=== PATIENT | female | born 1995 | race Caucasian/White ===

== ENCOUNTER 2018-05-05 11:56 | Inpatient (IN) | payer OTHER ==
[2018-05-05] MEDS ORDERED: CARBOPROST 250 MCG INJ IM (12:30)
[2018-05-05] MEDS ORDERED: LIDOCAINE 1% (MPF) 30 ML INJ INJ (12:30)
[2018-05-05] MEDS ORDERED: MISOPROSTOL 200 MCG TAB PR (12:30)
[2018-05-05] MEDS ORDERED: OXYTOCIN 30 UNITS/LR 500 ML IV (12:30)
[2018-05-05] MEDS ORDERED: METHYLERGONOVINE 0.2 MG INJ IM (12:30)
[2018-05-05] MEDS ORDERED: OXYCODONE/ACETAMINOPHEN (5/325) TAB PO (12:30)
[2018-05-05] MEDS ORDERED: IBUPROFEN 600 MG TAB PO (12:30)
[2018-05-05 14:34] LABS: ADD MAN DIFF? NO
[2018-05-05 14:37] LABS: BASOPHILS % 0.4 % (0.0-2.0); EOSINOPHILS # 0.1 10^3/ul (0.0-0.5); HEMATOCRIT 37.6 % (37.0-47.0); HEMOGLOBIN 12.3 g/dl (12.0-16.0); LYMPHOCYTES # 1.2 10^3/ul (0.8-2.9); MEAN CORPUSCULAR HEMOGLOBIN 28.7 pg (29.0-33.0); MEAN CORPUSCULAR HGB CONC 32.7 g/dl (32.0-37.0); MEAN CORPUSCULAR VOLUME 87.9 fl (82.0-101.0); MEAN PLATELET VOLUME 11.4 fl (7.4-10.4); MONOCYTE # 0.5 10^3/ul (0.3-0.9); MONOCYTES % 9.8 % (0.0-11.0); NEUTROPHIL # 3.1 10^3/ul (1.6-7.5); NEUTROPHILS % 63.2 % (39.0-77.0); PLATELET COUNT 179 10^3/UL (140-415); RED BLOOD COUNT 4.28 10^6/ul (4.20-5.40); RED CELL DISTRIBUTION WIDTH 13.3 % (11.5-14.5)
[2018-05-05 14:37] LABS: WHITE BLOOD COUNT 4.9 10^3/ul (4.8-10.8)
[2018-05-05] MEDS: LACTATED RINGER'S 1,000 ML IV* ×3 (14:51→22:49)
[2018-05-05 14:58] LABS: INR 0.93; PARTIAL THROMBOPLASTIN TIME 30.2 Sec (25.0-35.0); PROTIME 12.5 Sec (11.9-14.9)
[2018-05-05] MEDS: OXYTOCIN 30 UNITS/LR 500 ML IV (15:15)
[2018-05-05 18:59] LABS: RAPID PLASMA REAGIN NONREACTIVE (NR)
[2018-05-05] MEDS: FAMOTIDINE 20 MG INJ IV (20:44)
[2018-05-05] MEDS: BUTORPHANOL 2 MG INJ IV (21:44)
[2018-05-05] MEDS ORDERED: FENTAnyl 2MCG/ML-ROPIV 0.2% 100 ML (23:20)
[2018-05-06] MEDS ORDERED: NALOXONE (0.4 MG/ML) INJ IV
[2018-05-06] MEDS: OXYTOCIN 30 UNITS/LR 500 ML IV ×3 (01:37→01:58)
[2018-05-06] MEDS ORDERED: ACETAMINOPHEN 325 MG TAB PO (02:00)
[2018-05-06] MEDS ORDERED: OXYTOCIN 30 UNITS/LR 500 ML IV (02:00)
[2018-05-06] MEDS ORDERED: CARBOPROST 250 MCG INJ IM (02:00)
[2018-05-06] MEDS ORDERED: DIBUCAINE 1% 30 GM OINT PR (02:00)
[2018-05-06] MEDS ORDERED: MISOPROSTOL 200 MCG TAB PR (02:00)
[2018-05-06] MEDS ORDERED: ONDANSETRON 4 MG INJ IV (02:00)
[2018-05-06] MEDS ORDERED: LANOLIN 7 GM TUBE TOP (02:00)
[2018-05-06] MEDS ORDERED: METHYLERGONOVINE 0.2 MG INJ IM (02:00)
[2018-05-06] MEDS: LACTATED RINGER'S 1,000 ML IV* ×3 (04:05→12:30)
[2018-05-06] MEDS: IBUPROFEN 600 MG TAB PO ×3 (05:24→17:22)
[2018-05-06] MEDS: BENZOCAINE 20% 56 ML SPRAY TOP (05:24)
[2018-05-06] MEDS: WITCH HAZEL/GLYCERIN PAD PR (05:25)
[2018-05-06] MEDS: ACETAMINOPHEN 325 MG TAB PO (13:36)
[2018-05-06] MEDS: FENTAnyl 2MCG/ML-ROPIV 0.2% 100 ML BAG EPI ×2 (16:26)
[2018-05-06] MEDS: CEPHALEXIN 500 MG CAP PO ×2 (17:56→23:32)
[2018-05-06] MEDS ORDERED: OXYCODONE/ACETAMINOPHEN (5/325) TAB PO (20:00)
[2018-05-06] MEDS: SENNA/DOCUSATE NA (8.6MG/50MG) TAB PO (20:11)
[2018-05-06] MEDS: MAGNESIUM HYDROXIDE 30ML CUP PO (20:11)
[2018-05-06] MEDS: OXYCODONE/ACETAMINOPHEN (5/325) TAB PO (20:11)
[2018-05-07] MEDS: CEPHALEXIN 500 MG CAP PO ×3 (05:41→17:46)
[2018-05-07] MEDS: IBUPROFEN 600 MG TAB PO ×2 (08:04→17:46)
[2018-05-07 11:07] LABS: ADD MAN DIFF? NO
[2018-05-07 11:12] LABS: WHITE BLOOD COUNT 7.7 10^3/ul (4.8-10.8)
[2018-05-07 11:12] LABS: BASOPHILS % 0.3 % (0.0-2.0); EOSINOPHILS # 0.1 10^3/ul (0.0-0.5); EOSINOPHILS % 1.8 % (0.0-7.0); HEMATOCRIT 36.1 % (37.0-47.0); HEMOGLOBIN 11.7 g/dl (12.0-16.0); LYMPHOCYTES # 1.5 10^3/ul (0.8-2.9); LYMPHOCYTES % 19.6 % (15.0-51.0); MEAN CORPUSCULAR HEMOGLOBIN 28.2 pg (29.0-33.0); MEAN CORPUSCULAR HGB CONC 32.4 g/dl (32.0-37.0); MONOCYTE # 0.4 10^3/ul (0.3-0.9); MONOCYTES % 5.4 % (0.0-11.0); NEUTROPHIL # 5.6 10^3/ul (1.6-7.5); NEUTROPHILS % 72.4 % (39.0-77.0); PLATELET COUNT 167 10^3/UL (140-415); RED BLOOD COUNT 4.15 10^6/ul (4.20-5.40); RED CELL DISTRIBUTION WIDTH 13.2 % (11.5-14.5)
[2018-05-07] MEDS: SENNA/DOCUSATE NA (8.6MG/50MG) TAB PO (12:26)
[2018-05-08] MEDS: CEPHALEXIN 500 MG CAP PO ×3 (00:11→12:40)
[2018-05-08] MEDS: SENNA/DOCUSATE NA (8.6MG/50MG) TAB PO (11:11)
[2018-05-08] MEDS: IBUPROFEN 600 MG TAB PO (12:40)
== END 2018-05-08 12:45 | disposition home or self-care (01) | DRG 775 ==
LOC: L-D 11:56 → PP1 05-06 03:29 → L-D 18:03
PROVIDERS: Obstetrics & Gynecology
PROC: 10E0XZZ Delivery of Products of Conception, External Approach (ICD-10-PCS; principal; 2018-05-06)
DX: O80 Encounter for full-term uncomplicated delivery (principal); Z3A.40 40 weeks gestation of pregnancy; Z37.0 Single live birth
CPT/HCPCS: 62319; 76815; 85025; 85610; 85730; 86592; 86850; 86900; 86901

== ENCOUNTER 2018-09-22 10:34 | Emergency (ER) | payer OTHER ==
[2018-09-22 11:11] LABS: URINE BLOOD (Dip) POC Negative (NEGATIVE); URINE GLUCOSE (Dip) POC Negative (NEGATIVE); URINE KETONES (Dip) POC Trace (NEGATIVE); URINE LEUKOCYTE EST (Dip) POC 1+ (NEGATIVE); URINE NITRITE (Dip) POC Negative (NEGATIVE); URINE TOTAL PROTEIN POC 1+ (NEGATIVE)
[2018-09-22 11:11] LABS: URINE PH (Dip) POC 8.5 (5.0-8.5)
[2018-09-22] MEDS: ONDANSETRON (ODT) 4 MG TAB ODT (11:12)
== END 2018-09-22 11:27 | disposition home or self-care (01) ==
LOC: FTE 10:34
DX: A08.4 Viral intestinal infection, unspecified (principal)
CPT/HCPCS: 81003; 81025; 99283